=== PATIENT | female | born 1960 | race Two or more races ===

== ENCOUNTER 2025-02-08 09:00 | Day surgery (SDC) | payer OTHER ==
[2025-02-08] MEDS ORDERED: MIDAZOLAM HCL 2 MG/2 ML VIAL IV ONE (12:00)
[2025-02-08] MEDS ORDERED: DIPHENHYDRAMINE HCL 50 MG/ML VIAL 1ML IV ONE (12:00)
[2025-02-08] MEDS ORDERED: fentaNYL CITRATE 50 MCG/ML AMPUL IV PUSH ONE (12:00)
== END 2025-02-08 13:40 | disposition home or self-care (01) ==
LOC: AMB-ENDOS 09:00
PROVIDERS: ATTEND Surgery
DX: D12.2 Benign neoplasm of ascending colon (principal); K63.5 Polyp of colon; K57.30 Diverticulosis of large intestine without perforation or abscess without bleeding

== ENCOUNTER 2025-02-17 17:28 | Inpatient (IN) | payer OTHER ==
[~2025-02-17] VITALS: Ht 170.2 cm; Wt 58.1 kg
--- NOTE | 2025-02-17 17:45 | NUR ---
SE RECIBE A PTE EN [facility]. PTE REFIERE SE LE REALIZO PROCEDIMIENTO HACE SUNSHINE SEMANA CON DR. HENSON. PTE REFIERE HOY PRESENTO DOLOR ABDOMINAL Y [place] RECTAL.
[2025-02-17] MEDS ORDERED: MORPHINE SULFATE 4 MG/ML CARTRIDGE IV ONE (18:15)
[2025-02-17] MEDS ORDERED: ONDANSETRON HCL 2 MG/ML VIAL IV ONE (18:15)
[2025-02-17] MEDS ORDERED: PANTOPRAZOLE SODIUM 40 MG/VIAL VIAL IV ONE (18:15)
[2025-02-17] MEDS ORDERED: 0.9 % SODIUM CHLORIDE 1,000 ML IV SCH (18:15)
[2025-02-17] MEDS ORDERED: PIPERACILLIN/TAZOBACTAM SODIUM 3.375 GM VIAL IV ONE ×2 (18:15→18:48)
[2025-02-17] MEDS ORDERED: ONDANSETRON HCL 2 MG/ML VIAL ONE ×2 (18:48→18:49)
[2025-02-17 19:11] LABS: BASO % 0.4 % (0.1-1.2); EOS # 0.04 (0.04-0.54); EOS % 0.4 % (0.7-7.0); LYMPH # 1.48 (1.18-3.74); LYMPH % 13.1 % (19.3-53.1); MEAN PLATELET VOLUME 8.90 fl (9.4-12.4); MONO # 0.86 (0.24-0.82); MONO % 7.6 % (4.7-12.5); NEUT # 8.86 (1.56-6.13); NEUT % 78.1 % (34.0-71.1); RED CELL DISTRIBUTION WIDTH 13.1 % (11.6-14.4)
--- NOTE | 2025-02-17 19:30 | NUR ---
RN TOY Y RN AMY JUNTO A ESCOLTA TRANFIEREN PTE DESDE SECC K A CAMA #2 DE CRITICO. LA CONECTARONA MONITOR CARDIACO Y OXIMETRIA DE PULSO, TOMARON MUESTRAS DE LAB, CANALIZARON, ADMINISTRARON MEDS Y INSERTARON BARRETO BAJO MEDIDAS ASEPTICAS Y ESTERILES.
[2025-02-17 19:45] LABS: ERYTHROCYTE SEDIMENTATION RATE 3 mm/hr (0-30)
[2025-02-17 19:48] LABS: INR 1.01
[2025-02-17 20:06] LABS: ALT/SGPT 26 U/L (12-78); AST/SGOT 17 U/L (15-37); BILIRUBIN TOTAL 0.68 mg/dL (0.3-1.2); BUN CREA RATIO 39 (7.0-25.0); CREATININE SERUM 0.62 mg/dL (0.55-1.02); GFR 96.31; GLOBULINA 3.6 G/DL (2.4-3.5); GLUCOSE FASTING 105 mg/dL (65-100); OSMOLALITY SERUM 288 MOSM/KG (275-295)
--- NOTE | 2025-02-17 20:24 | NUR ---
DR. YISEL COLLAZO PASA A ROQUE PTE Y ORDENA VERBALMENTE REQUIZAR 2 U DE PRBC SI HGB SALE BAJA. AL SALIR RESULTADO DE CBC PROCEDO A LLAMR A DR YISEL COLLAZO Y LORENZO VIA TELEFONICA CANCELAR ORDEN DE TRASNFUSION PORQUE HGB ESTA EN 11.9 Y ORDENO REPETIR CBC A LAS 5AM DE 02-18-25. PTE AL MOMENTO SE ENCUENTRA CON SIGNOS VITALES ESTABLES Y NO THOMAS TENIDO OTRO EPISODIO DE [place]GR[place]. SE MANTIENE EN OBSERVACION POR CAMBIOS
[2025-02-17] MEDS ORDERED: DIPHENHYDRAMINE HCL 50 MG/ML VIAL 1ML ONE (21:45)
[2025-02-17] MEDS ORDERED: DIPHENHYDRAMINE HCL 50 MG/ML VIAL 1ML IV ONE (22:00)
--- NOTE | 2025-02-17 23:27 | NUR ---
SE RECIBE A PTE DE TURNO ANTERIOR EN CRITICO CAMA 2. PTE ALERTA Y ORIENTADA X3. SE OBSERVA CONECTADA A MONITOR CARDIACO Y OXIMETRIA DE PULSO. SE OBSERVA LIT INTACTO, VENOPUNCIONES EN MANO LT, RT PATENTES RECIVIENDO IVF EN MANO LT. PTE CON ABDOMEN BLANDO Y DEPRESIBLE AL TACTO. PTE CON BARRETO BAJANDO A GRAVEDAD. CON RETORNO DE ORINA COLOR AMARILLO NASIM. PTE CON EXTREMIDADES SUPERIORES E INFERIORES MOO DE EDEMA Y ERITEMA. PTE PENDIENTE A MUESTRAS DE LAB @ AM.
[2025-02-18] VITALS (13 sets, daily range): BP systolic 87–123; BP diastolic 43–63; O2SAT 97–100
--- NOTE | 2025-02-18 06:31 | NUR ---
SE REALIZAN MUESTRAS DE LAB ALISTAIR ORDEN MEDICA Y BAJO MEDIDAS ASEPTICAS.
[2025-02-18 06:44] LABS: BASO % 0.1 % (0.1-1.2); EOS # 0.05 (0.04-0.54); EOS % 0.6 % (0.7-7.0); LYMPH # 1.22 (1.18-3.74); LYMPH % 14.5 % (19.3-53.1); MEAN PLATELET VOLUME 9.00 fl (9.4-12.4); MONO # 0.54 (0.24-0.82); MONO % 6.4 % (4.7-12.5); NEUT # 6.56 (1.56-6.13); NEUT % 78.0 % (34.0-71.1); RED CELL DISTRIBUTION WIDTH 13.1 % (11.6-14.4)
--- NOTE | 2025-02-18 07:48 | NUR ---
FEMINA ALERTA Y ORIENTADA X3 EN UNIDAD DE CRITICO EN CAMA POSICION MAS BAJA Y BARANDAS ELEVADAS POR SEGURIDAD. CONECTADA A MONITOR CARDIACO Y OXIMETRIA DE PULSO CONTINUA. PACIENTE CANALIZADA EN AMBAS IRLANDA CON ANGIO #20, PATENTES LIBRES DE EDEMA Y ERITEMA CON IVF'S. PACIENTE CON SONDA URINARIA PATENTE COLOCADA A GRAVEDAD DRENANDO ORINA COLOR AMARILLO NASIM. PACIENTE CONSULTADA CON DR Jeferson COLLAZO.
--- NOTE | 2025-02-18 09:40 | NUR ---
DR YISEL COLLAZO EVALUA PACIENTE EN LA UNIDAD. DR Jeferson COLLAZO OFRECE ORDEN VERBAL DE TRANSFUNDIR 2 UNIDADES DE PRBC A PACIENTE, EL MISMO EDUCA A PACIENTE SOBRE PROCEDIMIENTO, LA MISMA REFIERE ENTENDER Y ACEPTAR. SE CORROBORAN DATOS DEMOGRAFICOS. CONSENTIMIENTO DE TRANSFUSION PREVIAMENTE FIRMADO. SE COLECTAN TUBOS PILOTOS Y SE COMPLETA REQUISICION SANGUINEA PARA 2 UNIDADES DE PRBC LA CUAL SE LLEVA A BANCO DE CARLITOS DE INSTITUCION.
[2025-02-18] MEDS ORDERED: FAMOTIDINE/PF 20 MG/2 ML VIAL IV SCH (10:12)
[2025-02-18] MEDS ORDERED: ONDANSETRON HCL 4 MG in DEXTROSE 5 % IN WATER 50 ML IV SCH (10:12)
[2025-02-18] MEDS ORDERED: MORPHINE SULFATE 4 MG/ML CARTRIDGE IV PRN (10:15)
[2025-02-18] MEDS ORDERED: 0.9 % SODIUM CHLORIDE 1,000 ML IV SCH ×2 (10:15→15:00)
[2025-02-18] MEDS ORDERED: ONDANSETRON HCL 2 MG/ML VIAL ONE ×2 (11:06→21:03)
[2025-02-18] MEDS ORDERED: FAMOTIDINE/PF 20 MG/2 ML VIAL ONE ×2 (11:07→21:03)
[2025-02-18 12:11] LABS: BUN CREA RATIO 24.0 (7.0-25.0); CREATININE SERUM 0.46 mg/dL (0.55-1.02); GFR 135.91; GLUCOSE FASTING 75.0 mg/dL (65-100); OSMOLALITY SERUM 285.0 MOSM/KG (275-295)
[2025-02-18] MEDS ORDERED: DEXTROSE 50 % IN WATER 0.5 G/ML DISP.SYRIN IV ONE (17:28)
[2025-02-18] MEDS ORDERED: DEXTROSE 5 % AND 0.9 % NACL 1,000 ML IV SCH (18:30)
[2025-02-18] MEDS ORDERED: DEXTROSE 50 % IN WATER 0.5 G/ML VIAL IV ONE (18:30)
[2025-02-18] MEDS ORDERED: NOREPINEPHRINE BITARTRATE 1 MG/ML AMPUL IV SCH (18:30)
[2025-02-18] MEDS ORDERED: NOREPINEPHRINE BITARTRATE 1 MG/ML AMPUL IV ONE (18:36)
[2025-02-18] MEDS ORDERED: NOREPINEPHRINE BITARTRATE 8 MG in DEXTROSE 5 % IN WATER 250 ML IV SCH (18:45)
[2025-02-19] VITALS (8 sets, daily range): BP systolic 95–132; BP diastolic 63–91; O2SAT 96–100
[2025-02-19] MEDS ORDERED: LEVOTHYROXINE SODIUM 50 MCG TABLET PO SCH (06:00)
[2025-02-19] MEDS ORDERED: DEXTROSE 5%-WATER 250ML IV.SOLN ONE (06:25)
[2025-02-19 06:47] LABS: BASO % 0.4 % (0.1-1.2); EOS # 0.12 (0.04-0.54); EOS % 2.2 % (0.7-7.0); LYMPH # 1.24 (1.18-3.74); LYMPH % 22.3 % (19.3-53.1); MEAN PLATELET VOLUME 9.00 fl (9.4-12.4); MONO # 0.37 (0.24-0.82); MONO % 6.7 % (4.7-12.5); NEUT # 3.79 (1.56-6.13); NEUT % 68.2 % (34.0-71.1); RED CELL DISTRIBUTION WIDTH 12.9 % (11.6-14.4)
[2025-02-19] MEDS ORDERED: ONDANSETRON HCL 2 MG/ML VIAL ONE ×2 (07:13→15:36)
[2025-02-19 07:57] LABS: INR 1.09
[2025-02-19 09:54] LABS: BUN CREA RATIO 13.0 (7.0-25.0); CREATININE SERUM 0.46 mg/dL (0.55-1.02); GFR 135.91; GLUCOSE FASTING 121.0 mg/dL (65-100); OSMOLALITY SERUM 286.0 MOSM/KG (275-295); TSH 1.3 uIU/mL (0.358-3.74)
[2025-02-19 11:46] LABS: BASO % 0.3 % (0.1-1.2); EOS # 0.12 (0.04-0.54); EOS % 2.1 % (0.7-7.0); LYMPH # 1.27 (1.18-3.74); LYMPH % 22.0 % (19.3-53.1); MEAN PLATELET VOLUME 9.40 fl (9.4-12.4); MONO # 0.32 (0.24-0.82); MONO % 5.5 % (4.7-12.5); NEUT # 4.01 (1.56-6.13); NEUT % 69.6 % (34.0-71.1); RED CELL DISTRIBUTION WIDTH 12.9 % (11.6-14.4)
[2025-02-19] MEDS ORDERED: PANTOPRAZOLE SODIUM 80 MG in 0.9 % SODIUM CHLORIDE 100 ML IV SCH (12:15)
[2025-02-19] MEDS ORDERED: NOREPINEPHRINE BITARTRATE 4 MG in DEXTROSE 5 % IN WATER 250 ML IV SCH (18:45)
[2025-02-20] MEDS ORDERED: ONDANSETRON HCL 2 MG/ML VIAL ONE ×4 (00:27→22:47)
[2025-02-20 04:00] VITALS: BP 105/71; O2SAT 98
[2025-02-20 07:04] VITALS: BP 121/77; O2SAT 97
[2025-02-20 07:54] LABS: BASO % 0.4 % (0.1-1.2); EOS # 0.15 (0.04-0.54); EOS % 2.9 % (0.7-7.0); LYMPH # 1.38 (1.18-3.74); LYMPH % 26.6 % (19.3-53.1); MEAN PLATELET VOLUME 9.50 fl (9.4-12.4); MONO # 0.50 (0.24-0.82); MONO % 9.6 % (4.7-12.5); NEUT # 3.13 (1.56-6.13); NEUT % 60.3 % (34.0-71.1); RED CELL DISTRIBUTION WIDTH 13.1 % (11.6-14.4)
[2025-02-20 08:16] LABS: ALT/SGPT 20.0 U/L (12-78); AST/SGOT 16.0 U/L (15-37); BILIRUBIN TOTAL 2.02 mg/dL (0.3-1.2); BUN CREA RATIO 10.0 (7.0-25.0); CREATININE SERUM 0.41 mg/dL (0.55-1.02); GFR 155.21; GLOBULINA 2.7 G/DL (2.4-3.5); GLUCOSE FASTING 96.0 mg/dL (65-100); OSMOLALITY SERUM 284.0 MOSM/KG (275-295)
[2025-02-20] MEDS ORDERED: ACETAMINOPHEN 500 MG GEL..CAP PO PRN (10:30)
[2025-02-20 12:00] VITALS: BP 125/92; O2SAT 99
[2025-02-20 15:38] VITALS: BP 123/99; O2SAT 98
[2025-02-20] MEDS ORDERED: AA 4.25%/CAL/LYTES/DEXT 5% 1,000 ML PERIFERAL SCH (17:00)
[2025-02-20 20:00] VITALS: BP 121/78; O2SAT 98
[2025-02-20 23:21] VITALS: BP 102/73; O2SAT 100
[2025-02-21 04:13] VITALS: BP 95/63; O2SAT 98
[2025-02-21 07:16] LABS: BASO % 0.5 % (0.1-1.2); EOS # 0.14 (0.04-0.54); EOS % 2.1 % (0.7-7.0); LYMPH # 1.12 (1.18-3.74); LYMPH % 16.9 % (19.3-53.1); MEAN PLATELET VOLUME 8.90 fl (9.4-12.4); MONO # 0.60 (0.24-0.82); MONO % 9.0 % (4.7-12.5); NEUT # 4.73 (1.56-6.13); NEUT % 71.2 % (34.0-71.1); RED CELL DISTRIBUTION WIDTH 13.1 % (11.6-14.4)
[2025-02-21 07:40] VITALS: BP 125/74; O2SAT 97
[2025-02-21 08:07] LABS: ALT/SGPT 20.0 U/L (12-78); AST/SGOT 15.0 U/L (15-37); BILIRUBIN TOTAL 1.72 mg/dL (0.3-1.2); BILIRUBIN,CONJUGATED 0.33 mg/dL (0.0-0.2); BUN CREA RATIO 8.0 (7.0-25.0); CREATININE SERUM 0.48 mg/dL (0.55-1.02); GFR 129.4; GLUCOSE FASTING 92.0 mg/dL (65-100); OSMOLALITY SERUM 283.0 MOSM/KG (275-295)
[2025-02-21] MEDS ORDERED: ONDANSETRON HCL 2 MG/ML VIAL ONE (08:22)
[2025-02-21 10:47] LABS: CORTISOL 14.13 ug/dl
[2025-02-21 12:00] VITALS: BP 129/76; O2SAT 97
[2025-02-21 15:33] VITALS: BP 129/81; O2SAT 98
[2025-02-21] MEDS ORDERED: AA 2.36%/D6.8W/FAT/E-LYTES NO9 1,440 ML IV SCH ×2 (17:00→21:00)
[2025-02-21] MEDS ORDERED: METOPROLOL SUCCINATE 25 MG TAB.SR.24H PO NR (17:00)
[2025-02-21] MEDS ORDERED: ATORVASTATIN CALCIUM 40 MG TABLET PO SCH (17:00)
[2025-02-21] MEDS ORDERED: POTASSIUM PHOS,M-BASIC-D-BASIC 3 MM/ML VIAL IV NR (18:00)
[2025-02-22 00:30] VITALS: BP 114/71; O2SAT 97
[2025-02-22 07:19] LABS: BASO % 0.5 % (0.1-1.2); EOS # 0.18 (0.04-0.54); EOS % 3.1 % (0.7-7.0); LYMPH # 0.70 (1.18-3.74); LYMPH % 12.1 % (19.3-53.1); MEAN PLATELET VOLUME 9.30 fl (9.4-12.4); MONO # 0.42 (0.24-0.82); MONO % 7.3 % (4.7-12.5); NEUT # 4.43 (1.56-6.13); NEUT % 76.7 % (34.0-71.1); RED CELL DISTRIBUTION WIDTH 13.1 % (11.6-14.4)
[2025-02-22 08:00] VITALS: BP 111/69; O2SAT 98
[2025-02-22] MEDS ORDERED: METOPROLOL SUCCINATE 25 MG TAB.SR.24H PO SCH (09:00)
[2025-02-22] MEDS ORDERED: PANTOPRAZOLE SODIUM 80 MG in 0.9 % SODIUM CHLORIDE 100 ML IV SCH (11:30)
[2025-02-22] MEDS ORDERED: POLYETHYLENE GLYCOL 3350 238 GM POWDER PO SCH (14:00)
[2025-02-22 17:00] VITALS: BP 145/84; O2SAT 96
[2025-02-22] MEDS ORDERED: AA 2.36%/D6.8W/FAT/E-LYTES NO9 1,440 ML IV SCH (17:00)
[2025-02-23 00:30] VITALS: BP 125/76; O2SAT 98
[2025-02-23 01:27] LABS: URINE APPEARANCE Clear; URINE BILIRRUBIN Negative (NEGATIVE); URINE BLOOD Trace; URINE COLOR Yellow; URINE GLUCOSE Negative (NEGATIVE); URINE KETONE Negative (NEGATIVE); URINE LEUKOCYTE Trace; URINE NITRATE Negative; URINE PROTEIN Negative (NEGATIVE); URINE UROBILINOGEN 0.2 E.U./dl
[2025-02-23 01:31] LABS: URINE BACTERIA 74.3 uL (0.0-1933); URINE EPITHELIAL CELLS 10.4 uL (0.0-38.8); URINE RBC 11.1 uL (0.0-20.8); URINE WBC 48.9 uL (0.0-23.2)
[2025-02-23 01:34] LABS: URINE CAST 0.14 uL (0.0-1.40)
[2025-02-23] MEDS ORDERED: PANTOPRAZOLE SODIUM 40 MG TABLET.DR PO SCH (06:00)
[2025-02-23 07:28] LABS: BASO % 0.9 % (0.1-1.2); EOS # 0.17 (0.04-0.54); EOS % 3.8 % (0.7-7.0); LYMPH # 1.13 (1.18-3.74); LYMPH % 25.6 % (19.3-53.1); MEAN PLATELET VOLUME 9.60 fl (9.4-12.4); MONO # 0.55 (0.24-0.82); NEUT # 2.52 (1.56-6.13); NEUT % 57.1 % (34.0-71.1); RED CELL DISTRIBUTION WIDTH 13.1 % (11.6-14.4)
[2025-02-23 07:40] LABS: MONO % 12.4 % (4.7-12.5)
[2025-02-23 07:44] LABS: ALT/SGPT 19.0 U/L (12-78); AST/SGOT 15.0 U/L (15-37); BILIRUBIN TOTAL 0.64 mg/dL (0.3-1.2); BILIRUBIN,CONJUGATED 0.15 mg/dL (0.0-0.2); BUN CREA RATIO 10.0 (7.0-25.0); CREATININE SERUM 0.51 mg/dL (0.55-1.02); GFR 120.65; GLUCOSE FASTING 109.0 mg/dL (65-100); OSMOLALITY SERUM 287.0 MOSM/KG (275-295)
[2025-02-23] MEDS ORDERED: MIDAZOLAM HCL 2 MG/2 ML VIAL IV ONE (11:30)
[2025-02-23] MEDS ORDERED: ONDANSETRON HCL 2 MG/ML VIAL IV ONE (11:30)
[2025-02-23] MEDS ORDERED: DIPHENHYDRAMINE HCL 50 MG/ML VIAL 1ML IV ONE (11:30)
[2025-02-23] MEDS ORDERED: fentaNYL CITRATE 50 MCG/ML AMPUL IV PUSH ONE (11:30)
[2025-02-23 16:00] VITALS: BP 114/73; O2SAT 95
[2025-02-24 02:18] VITALS: BP 122/81; O2SAT 98
[2025-02-24] MEDS ORDERED: INTESTINEX680 M1 PO (11:52)
[2025-02-24] MEDS ORDERED: INTEGRA F CAPS1 EACH PO (11:54)
[2025-02-24] MEDS ORDERED: HYOSCYAMINE0.125 M1 SL (11:54)
== END 2025-02-24 14:16 | disposition home or self-care (01) | DRG 377 ==
LOC: ER 17:28 → ICU 02-18 10:45 → ICU-2 02-18 10:45 → ICU 02-19 04:48 → SURH 02-21 19:54
PROVIDERS: Internal Medicine Geriatric Medicine; Student in an Organized Health Care Education/Training Program; Surgery; ADMIT Surgery; ATTEND Surgery
PROC: BW21YZZ Computerized Tomography (CT Scan) of Abdomen and Pelvis using Other Contrast (ICD-10-PCS; 2025-02-17)
PROC: BW28ZZZ Computerized Tomography (CT Scan) of Head (ICD-10-PCS; 2025-02-17)
PROC: 30233N1 Transfusion of Nonautologous Red Blood Cells into Peripheral Vein, Percutaneous Approach (ICD-10-PCS; 2025-02-18)
PROC: B246ZZZ Ultrasonography of Right and Left Heart (ICD-10-PCS; 2025-02-19)
PROC: 02HV33Z Insertion of Infusion Device into Superior Vena Cava, Percutaneous Approach (ICD-10-PCS; 2025-02-22)
PROC: 4A12X4Z Monitoring of Cardiac Electrical Activity, External Approach (ICD-10-PCS; 2025-02-22)
PROC: 0DJD8ZZ Inspection of Lower Intestinal Tract, Via Natural or Artificial Opening Endoscopic (ICD-10-PCS; principal; 2025-02-23)
PROC: 0DJ08ZZ Inspection of Upper Intestinal Tract, Via Natural or Artificial Opening Endoscopic (ICD-10-PCS; 2025-02-23)
DX: K92.1 Melena (principal); R57.1 Hypovolemic shock; R57.8 Other shock; E03.9 Hypothyroidism, unspecified; I10 Essential (primary) hypertension; K21.9 Gastro-esophageal reflux disease without esophagitis; I95.89 Other hypotension